=== PATIENT | female | born 1955 | race Caucasian/White ===

== ENCOUNTER 2021-02-21 07:30 | Outpatient (CLI) | payer OTHER | END 2021-02-21 07:35 | disposition home or self-care (01) | LOC: LAB 07:30 | PROVIDERS: ATTEND Internal Medicine Cardiovascular Disease | DX: E03.8 Other specified hypothyroidism (principal); N39.0 Urinary tract infection, site not specified; E55.9 Vitamin D deficiency, unspecified; R80.8 Other proteinuria; E78.49 Other hyperlipidemia; D64.89 Other specified anemias; R10.84 Generalized abdominal pain; R73.09 Other abnormal glucose ==

== ENCOUNTER 2021-02-25 07:06 | Outpatient (CLI) | payer OTHER | END 2021-02-25 07:24 | disposition home or self-care (01) | LOC: TOM 07:06 | PROVIDERS: ATTEND Psychiatry & Neurology Neurology | DX: G44.219 Episodic tension-type headache, not intractable (principal); R42 Dizziness and giddiness; G40.209 Localization-related (focal) (partial) symptomatic epilepsy and epileptic syndromes with complex partial seizures, not intractable, without status epilepticus ==

== ENCOUNTER 2023-01-19 07:31 | Outpatient (CLI) | payer OTHER | END 2023-01-19 07:41 | disposition home or self-care (01) | LOC: MAMO-SONO 07:31 | PROVIDERS: ATTEND Internal Medicine Geriatric Medicine | DX: I11.9 Hypertensive heart disease without heart failure (principal); R06.02 Shortness of breath; Z12.31 Encounter for screening mammogram for malignant neoplasm of breast; C50.919 Malignant neoplasm of unspecified site of unspecified female breast; N63.0 Unspecified lump in unspecified breast; N64.4 Mastodynia; N60.11 Diffuse cystic mastopathy of right breast; N60.12 Diffuse cystic mastopathy of left breast ==

== ENCOUNTER 2023-04-29 09:04 | Outpatient (CLI) | payer OTHER | END 2023-04-29 09:18 | disposition home or self-care (01) | LOC: MRI 09:04 | PROVIDERS: ATTEND Neuromusculoskeletal Medicine & OMM | DX: R41.3 Other amnesia (principal) | CPT/HCPCS: 70553; Q9965 ==

== ENCOUNTER 2024-04-30 08:46 | Outpatient (CLI) | payer OTHER | END 2024-04-30 08:52 | disposition home or self-care (01) | LOC: MAMO-SONO 08:46 | PROVIDERS: ATTEND Internal Medicine Geriatric Medicine | DX: C50.919 Malignant neoplasm of unspecified site of unspecified female breast (principal); Z12.31 Encounter for screening mammogram for malignant neoplasm of breast; N63.0 Unspecified lump in unspecified breast; N64.4 Mastodynia; N60.12 Diffuse cystic mastopathy of left breast; N60.11 Diffuse cystic mastopathy of right breast ==

== ENCOUNTER 2024-12-28 08:16 | Outpatient (CLI) | payer OTHER | END 2024-12-28 08:18 | disposition home or self-care (01) | LOC: MRI 08:16 | PROVIDERS: ATTEND Neuromusculoskeletal Medicine & OMM | DX: R41.3 Other amnesia (principal) | CPT/HCPCS: 70553; Q9965 ==